=== PATIENT | female | born 1990 | race Caucasian/White ===

== ENCOUNTER 2018-02-17 16:38 | Emergency (ER) | payer OTHER ==
[~2018-02-17] VITALS: Ht 167.6 cm; Wt 137.4 kg
--- NOTE | 2018-02-17 16:40 | NUR ---
BIBRA 877 C/O R/L UPPER QUADRANT ABDOMINAL PAIN X TODAY 12/15 [facility] , HX OF PANCREATITIS , VSS , SKIN WARM TO TOUCH, ATTACHED TO MONITOR ,
[2018-02-17] MEDS ORDERED: ONDANSETRON HCL/PF 4 MG/2 ML VIAL ONE (16:51)
[2018-02-17] MEDS ORDERED: HYDROMORPHONE 1 MG/1 ML DISP.SYRIN ONE (16:52)
[2018-02-17] MEDS ORDERED: ONDANSETRON HCL/PF 4 MG/2 ML VIAL IVP ONE (17:00)
[2018-02-17] MEDS ORDERED: HYDROMORPHONE INJ 2 MG/ML DISP.SYRIN IV ONE (17:00)
[2018-02-17] MEDS ORDERED: IV NS 0.9% 1,000 ML BAG IV ONE (17:00)
[2018-02-17 17:03] LABS: BASOPHILS % (AUTO) 0.2 % (0.0-2.0); EOSINOPHILS % (AUTO) 2.4 % (0.0-6.0); HEMATOCRIT 40 % (33-45); HEMOGLOBIN 13.7 g/dL (11.5-14.8); LYMPHOCYTES # (AUTO) 3.2 /CMM (0.8-4.8); LYMPHOCYTES % (AUTO) 30.6 % (20.0-44.0); MEAN CORPUSCULAR HGB CONC 34 g/dl (31.0-36.0); MEAN CORPUSCULAR VOLUME 89 fL (82-100); MONOCYTES # (AUTO) 0.7 /CMM (0.1-1.30); MONOCYTES % (AUTO) 6.7 % (2.0-12.0); NEUTROPHILS # (AUTO) 6.3 /CMM (1.8-8.9); NEUTROPHILS % (AUTO) 60.1 % (43.0-81.0); PLATELET COUNT (AUTO) 404 /CMM (150-450); RDW COEFFICIENT OF VARIATION 11.8 (11.5-15.0); RED BLOOD CELL COUNT(AUTO) 4.49 MIL/uL (4.0-5.2); WHITE BLOOD COUNT (AUTO) 10.5 K/uL (4.3-11.0)
[2018-02-17 17:13] LABS: CALCIUM, SERUM 8.7 mg/dL (8.5-10.1); CREATININE 0.6 mg/dL (0.6-1.3)
[2018-02-17 17:19] LABS: ALBUMIN 3.6 g/dL (3.4-5.0); BILIRUBIN,DIRECT 0.2 mg/dL (0.0-0.2); BILIRUBIN,TOTAL 0.4 mg/dL (0.2-1.0); TOTAL PROTEIN, SERUM 7.5 g/dL (6.4-8.2)
--- NOTE | 2018-02-17 17:23 | NUR ---
DILAUDID 1MG AND ZOFRAN 4MG GIVEN , PT VERBALIZED THAT TODAY IS HER FIRST MENSTRUAL PERIOD ,
--- NOTE | 2018-02-17 17:50 | NUR ---
Patient discharged to home in stable condition. Written and verbal after care instructions given. Patient verbalizes understanding of instruction.IV removed. Catheter intact and site benign. Pressure and 4x4 applied to site. No bleeding noted. pain imporoved after dilaudid 1mg ivp given pain of 2/10 tolerable per pt
[2018-02-17 17:51] VITALS: BP 135/54
== END 2018-02-17 17:51 | disposition home or self-care (01) ==
LOC: ER 16:39
DX: R10.13 Epigastric pain (principal); Z90.49 Acquired absence of other specified parts of digestive tract; Z98.890 Other specified postprocedural states; Z98.84 Bariatric surgery status
CPT/HCPCS: 36415; 80048; 80076; 83690; 85025; 96374; 96375; 99284; A4606; J1170; J2405; J7030; Z7610

== ENCOUNTER 2021-02-19 18:46 | Emergency (ER) | payer OTHER ==
[~2021-02-19] VITALS: Ht 167.6 cm; Wt 133.8 kg
[2021-02-19] MEDS ORDERED: CEPH500T PO ×3 (20:33→20:51)
[2021-02-19] MEDS ORDERED: SULF1TAB48 PO ×3 (20:33→20:51)
[2021-02-19] MEDS ORDERED: IBUP-1957 PO ×3 (20:35→20:51)
[2021-02-19 20:44] VITALS: BP 129/88
--- NOTE | 2021-02-19 20:44 | NUR ---
Patient discharged to home in stable condition. Written and verbal after care instructions given. Patient verbalizes understanding of instruction. RX given
== END 2021-02-19 20:45 | disposition home or self-care (01) ==
LOC: ER 18:47
DX: K61.0 Anal abscess (principal); Z90.49 Acquired absence of other specified parts of digestive tract; Z98.890 Other specified postprocedural states; Z79.899 Other long term (current) drug therapy

== ENCOUNTER 2024-11-29 05:48 | Emergency (ER) | payer OTHER ==
[~2024-11-29] VITALS: Ht 167.6 cm; Wt 150.6 kg
[~2024-11-29 05:48] MED LIST: CEPH500T PO; IBUP-1957 PO; SULF1TAB48 PO
[2024-11-29] MEDS ORDERED: ONDANSETRON HCL/PF 4 MG/2 ML VIAL ONE (06:37)
[2024-11-29] MEDS: ONDANSETRON HCL/PF 4 MG/2 ML VIAL IVP ONE (06:38)
[2024-11-29] MEDS: IV NS 0.9% 1,000 ML BAG IV ONE (06:38)
[2024-11-29 07:15] LABS: PLATELET COUNT (AUTO) 388 K/uL (150-450); RED BLOOD CELL COUNT(AUTO) 4.54 MIL/uL (4.0-5.2); RED CELL DISTRIBUTION WIDTH 13.8 % (11.5-15.0); WHITE BLOOD COUNT (AUTO) 7.0 K/uL (4.3-11.0)
[2024-11-29 07:32] LABS: ASPARTATE AMINOTRANSFERASE 263.0 U/L (15-37); TOTAL PROTEIN, SERUM 7.1 g/dL (6.4-8.2)
[2024-11-29 07:39] LABS: CALCIUM, SERUM 8.7 mg/dL (8.5-10.1); CREATININE 0.5 mg/dL (0.6-1.3); SODIUM SERUM 139.0 mmol/L (136-145); UREA NITROGEN, BLOOD 9.0 mg/dL (7-18)
[2024-11-29 08:06] LABS: APPEARANCE,URINE CLEAR (CLEAR); BLOOD, URINE TRACE-INTA Ery/uL (NEGATIVE); LEUKOCYTE ESTERASE ,URINE NEGATIVE (NEGATIVE); NITRITE, URINE NEGATIVE (NEGATIVE); UGLUCOSE NEGATIVE (NEGATIVE)
[2024-11-29 08:16] LABS: ADD URINE CULTURE NO; SQUAMOUS EPITHELIAL CELL,UR 0-2 /HPF (None Seen)
[2024-11-29 08:17] LABS: AMPHETAMINE, URINE NEGATIVE (NEGATIVE); BARBITURATE, URINE NEGATIVE (NEGATIVE); BENZODIAZEPINE, URINE NEGATIVE (NEGATIVE); CANNABINOID, URINE NEGATIVE (NEGATIVE); COCCAINE, URINE NEGATIVE (NEGATIVE); OPIATE, URINE NEGATIVE (NEGATIVE)
[2024-11-29] MEDS: MORPHINE SULFATE INJ 2 MG/ML DISP.SYRIN IV ONE (08:30)
[2024-11-29] MEDS: FAMOTIDINE/PF INJ 20 MG/2 ML VIAL IV ONE (08:30)
[2024-11-29] MEDS ORDERED: HYDR-4303 PO (08:34)
[2024-11-29] MEDS ORDERED: ONDA4TAB5 PO (08:34)
[2024-11-29] MEDS ORDERED: FAMO-131 PO (08:34)
[2024-11-29] MEDS ORDERED: MAG HYDROX/AL HYDROX/SIMETH 30 ML UDC ONE (08:37)
[2024-11-29] MEDS ORDERED: MORPHINE SULFATE INJ 4 MG/ML DISP.SYRIN ONE (08:37)
[2024-11-29] MEDS ORDERED: LIDOCAINE VISCOUS 2% UD 15 ML UDC ONE (08:37)
[2024-11-29] MEDS ORDERED: FAMOTIDINE/PF INJ 20 MG/2 ML VIAL IV ONE (08:38)
[2024-11-29] MEDS: MAG HYDROX/AL HYDROX/SIMETH 30 ML UDC PO ONE (08:52)
[2024-11-29] MEDS: LIDOCAINE VISCOUS 2% UD 15 ML UDC MM ONE (08:52)
[2024-11-29 09:46] VITALS: BP 134/73; TEMP 98.2; O2SAT 99
== END 2024-11-29 09:46 | disposition home or self-care (01) ==
LOC: ER 05:52
DX: R10.12 Left upper quadrant pain (principal); R10.13 Epigastric pain; R11.2 Nausea with vomiting, unspecified; E78.1 Pure hyperglyceridemia; K76.0 Fatty (change of) liver, not elsewhere classified; K86.1 Other chronic pancreatitis; Z87.19 Personal history of other diseases of the digestive system; Z90.49 Acquired absence of other specified parts of digestive tract; Z79.899 Other long term (current) drug therapy
CPT/HCPCS: 99285; 96374; 96361; 96375; 76705; 85025; 80048; 83690; 80076; 81001; 36415; 80320; 80307; J2270; J1308; J2405; G0480